=== PATIENT | female | born 1965 | race Caucasian/White ===

== ENCOUNTER → 2022-03-22 10:02 | Outpatient (CLI) | payer OTHER, SELFPAY ==
--- NOTE | ~2022-03-22 | CT_ITS ---
EXAMINATION: CT IAC/mastoids BI wo con DATE: 03/22/2022 10:28 INDICATION: Mixed conductive and sensorineural hearing loss of left ear. TECHNIQUE: Computed tomography (CT) of the temporal bones was performed without intravenous contrast. Automated exposure control and iterative reconstruction technique were employed. The dose-length pro duct was 201.14 mGy-cm. COMPARISON: None FINDINGS: RIGHT TEMPORAL BONE: The internal auditory canal, cochlea, vestibule, semicircular canals, vestibular aqueduct, facial ner ve course, carotid canal, jugular bulb, ossicles, Prussak space, scutum, tympanic membrane, mastoid a ir cells, and external auditory canal are normal. LEFT TEMPORAL BONE: The internal auditory canal, cochlea, vestibule, semicircular canals, vestibular aqueduct, carotid ca nal, jugular bulb, facial nerve course, ossicles, Prussak space, scutum, tympanic membrane, mastoid a ir cells, and external auditory canal are normal. IMPRESSION: 1. Normal temporal bones. Reviewed, dictated and finalized at location A. O EDITOR IMPRESSION: 1. Normal temporal bones.
== END ==
PROVIDERS: Visit Provider Otolaryngology
DX: H90.12 Conductive hearing loss, unilateral, left ear, with unrestricted hearing on the contralateral side (principal); H90.42 Sensorineural hearing loss, unilateral, left ear, with unrestricted hearing on the contralateral side
CPT/HCPCS: 70480

== ENCOUNTER → 2022-06-02 10:21 | Outpatient (CLI) | payer OTHER, SELFPAY ==
--- NOTE | ~2022-06-02 | MM_ITS ---
EXAMINATION: MM screening pippa BI w adriel HISTORY: Screening mammogram TECHNIQUE: Craniocaudal and mediolateral oblique 3-D tomosynthesis images were obtained and synthetic 2-D images were generated. CAD analysis was submitted and interpreted. COMPARISON: No prior mammogram is available for comparison at this institution. BREAST PARENCHYMAL COMPOSITION: There are scattered areas of fibroglandular density. FINDINGS: There is no evidence of suspicious mass, calcification, or architectural distortion to sugg est malignancy in either breast. There has been no suspicious interval change. IMPRESSION: 1. No mammographic evidence of malignancy. 2. Recommend routine screening mammography in one year. BI-RADS Category 1: Negative Reviewed, dictated and finalized at location A. UCT MARKETING COORDINATOR
== END ==
DX: Z12.31 Encounter for screening mammogram for malignant neoplasm of breast (principal)
CPT/HCPCS: 77063; 77067

== ENCOUNTER → 2022-08-04 09:06 | Outpatient (CLI) | payer OTHER, SELFPAY ==
--- NOTE | ~2022-08-04 | MR_ITS ---
EXAMINATION: MR foot RT wo con DATE: 08/04/2022 09:58 INDICATION: Plantar fasciitis TECHNIQUE: Magnetic resonance imaging (MRI) of the right mid and hindfoot was performed without intra venous contrast. Sequences included sagittal, coronal, and axial proton-density weighted fast spin ec ho without and with fat saturation. COMPARISON: None. FINDINGS: Medial ankle ligaments: Deep and superficial deltoid ligaments as well as the spring ligament are normal. Lateral ankle ligaments: The anterior and posterior inferior tibiofibular ligaments are normal. The anterior talofibular, calc aneofibular and posterior talofibular ligaments are normal. Tendons: Achilles tendon is normal. Mild increased fluid signal extending along the peroneal tendon sheath con sistent with mild tenosynovitis. There is mild tendinopathy without definitive tear along the peroneu s longus and brevis tendons. The tibialis anterior and extensor hallucis longus and extensor digitoru m longus tendons are normal. The tibialis posterior, flexor digitorum longus and flexor hallucis long us tendons are normal. Plantar fascia: There is thickening and mild increased signal of the central component of the plantar aponeurosis wit h mild surrounding soft tissue edema. Moderate-sized plantar calcaneal spur and minimal marrow edema at the calcaneal origin of the plantar aponeurosis. Findings are consistent with acute on chronic melissa ntar fasciitis without associated tear. Bones/other: Bone alignment is normal. Mild marrow edema at the anterior process of the calcaneus likely related t o mild osteoarthritis at the at the calcaneocuboid or anterior facet of the subtalar joints. Addition al mild osteoarthritis at a few of the tarsal metatarsal joints. Marrow signal is otherwise unremarka ble. No fracture or pathologic marrow replacing process. Fluid: Subtle asymmetric joint space physiologic amount of fluid in the joint spaces. IMPRESSION: 1. Acute on chronic plantar fasciitis without tear. 2. Mild peroneal tenosynovitis and mild tendinopathy without tear of the peroneus longus and brevis t endons. Reviewed, dictated and finalized at location A. IMPRESSION: 1. Acute on chronic plantar fasciitis without tear. 2. Mild peroneal tenosynovitis and mild tendinopathy without tear of the perone us longus and brevis tendons.
== END ==
PROVIDERS: PCP Family Medicine; Visit Provider Podiatrist Foot & Ankle Surgery
DX: M72.2 Plantar fascial fibromatosis (principal)
CPT/HCPCS: 73718

== ENCOUNTER 2022-10-07 14:09 | Emergency (ER) | payer OTHER, SELFPAY ==
[2022-10-07 14:07] VITALS: BP 166/99; PULSE 75; RESP 18; TEMP 36.9; O2SAT 98
[2022-10-07 14:33] LABS: Basophils Absolute Auto 0.1 K/mm3 (0.0-0.1); Basophils Percent Auto 0.7 % (0.2-1.2); Eosinophils Absolute Auto 0.1 K/mm3 (0-0.3); Eosinophils Percent Auto 1.4 % (0-4.4); Hematocrit 42.6 % (37.0-47.0); Hemoglobin 14.1 g/dL (12.0-15.0); Immature Granulocyte Absolute 0.02 K/mm3 (0.00-0.031); Immature Granulocyte Percent A 0.3 % (0-0.5); Lymphocytes Absolute Auto 2.57 K/mm3 (0.9-3.2); Lymphocytes Percent Auto 33.5 % (18.3-44.2); Mean Corpuscular HGB Conc 33.1 g/dl (32-36); Mean Corpuscular Volume 87.7 fl (80-100); Mean Platelet Volume 9.9 fl (7.4-10.4); Monocytes Absolute Auto 0.5 K/mm3 (0.1-0.6); Neutrophils Absolute Auto 4.5 K/mm3 (1.3-6.7); Neutrophils Percent Auto 58.1 % (45.5-73.1); Platelet Count Result 260 k/mm3 (150-375); Red Blood Count 4.86 M/mm3 (4.2-5.4); Red Cell Distribution Width 12.6 % (11.5-14.5); White Blood Count 7.7 K/mm3 (4.5-10.0)
[2022-10-07 14:38] LABS: Appearance Urine Clear (Clear); Bacteria Urine None Seen /hpf; Bilirubin Urine Negative (Negative); Blood Urine Negative (Negative); Color Urine Yellow (Yellow); Glucose Urine UA Negative (Negative); Ketones Urine Negative (Negative); Leukocyte Esterase Ur 3+ LEU/UL (Negative); Nitrate Urine Negative (Negative); Non Pathogenic Casts 0-2; Protein Urine Negative (Negative); RBC Urine 0-2 /hpf (0-2); Specific Grav Ur 1.003 (1.001-1.035); Squamous Epithelial Cell Urine None seen /hpf (Few); Urobilinogen Urine 0.2 mg/dL (<2.0)
[2022-10-07 14:42] LABS: Add Urine Microscopic? YES
[2022-10-07 14:48] LABS: Ethanol < 10 mg/dL (<10)
[2022-10-07 14:49] LABS: Alanine Aminotransferase 34 U/L (6-35); Albumin Level 4.5 g/dL (3.5-5.1); Alkaline Phosphatase 52 U/L (38-126); Anion Gap 7 mmol/L (8-16); Aspartate Amino Transferase 28 U/L (14-36); Bilirubin,Total 0.5 mg/dL (0.2-1.3); Blood Urea Nitrogen 12 mg/dL (7-17); Calcium 9.1 mg/dL (8.4-10.2); Carbon Dioxide 26 mmol/L (22-30); Chloride 107 mmol/L (98-107); Estimated CRCL calculation 64 ml/min; Estimated Glomerular Filt Rate > 60; Glucose 110 mg/dL (65-110); Potassium 3.9 mmol/L (3.4-5.0); Sodium 140 mmol/L (137-145)
[2022-10-07 14:51] LABS: Amphetamine Screen Urine Negative (Negative); Barbiturate Screen Urine Negative (Negative); Benzodiazepines Screen Urine Negative (Negative); Cannabinoid Screen Urine Negative (Negative); Cocaine Screen Urine Negative (Negative); Methadone Screen Urine Negative (Negative); Opiate Screen Urine Negative (Negative); Phencyclidine Screen Urine Negative (Negative)
[2022-10-07 15:11] LABS: Acetaminophen < 10 ug/mL (10-30); Salicylate < 1.0 mg/dL (2-20)
[2022-10-07 15:19] LABS: Thyroid Stimulating Hormone 0.951 uIU/mL (0.465-4.680)
--- NOTE | 2022-10-07 15:38 | ED.PSYCH ---
HPI - Psych General Chief Complaint: Psychiatric Symptoms <Maritza Ortega PA-C - Last Filed: 10/07/22 19:33> Stated Complaint: SI with plan <Maritza Ortega PA-C - Last Filed: 10/07/22 19:33> Source: patient, RN notes reviewed and old records reviewed <Maritza Ortega PA-C - Last Filed: 10/07/22 19:33> Mode of arrival: EMS <Maritza Ortega PA-C - Last Filed: 10/07/22 19:33> Limitations: no limitations <PEDRO Oviedo Last Filed: 10/07/22 19:33> History of Present Illness HPI Narrative: Patient is a 57-year-old female who presents to the ED via EMS with report of suicidal ideation. Patient presents to the ED from her outpatient primary care doctor's office. She reports she has been increasingly depressed and feeling suicidal over the last 1 month. She was Rx'd fluoxetine by her PCP 1 month ago, but did not start this until 5 days ago. Patient has had numerous stressors. 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 She states her travels 3 out of the 4 weeks out of a month so most of the responsibilities fall on her. They have been trying to get their son into a long-term care facility but have had several insurance issues with this. Her son is currently hospitalized at [facility] and they report it is not looking hopeful for him to find placement. Patient states the suicidal thoughts have become worse surrounding this. She was driving around today and not really sure where to go. She called her primary and talked about these thoughts. She was evaluated by her primary in office and EMS was then called. Patient has thought about starting her car in her garage to kill herself. She also reported to her PCP thoughts of hanging herself. Patient has never attempted suicide before. Never been psychiatrically hospitalized. Denies any homicidal ideation, AVH. <Maritza Ortega PA-C - Last Filed: 10/07/22 19:33> Related Data Allergies/Adverse Reactions: Allergies Allergy/AdvReac Type Severity Reaction Status Date / Time azithromycin AdvReac Nausea and Verified 10/07/22 15:02 Vomiting <Maritza Ortega PA-C - Last Filed: 10/07/22 19:33> Review of Systems Review of Systems: CONSTITUTIONAL: Denies fever, chills, or sweats. CARDIOVASCULAR: Denies chest pain. RESPIRATORY: Denies dyspnea. GASTROINTESTINAL: Denies abdominal pain, nausea, vomiting. GENITOURINARY: Denies dysuria or hematuria. MUSCULOSKELETAL: Denies pain. NEUROLOGIC: Denies headache, numbness, or weakness. PSYCHIATRIC: See HPI. <Maritza Ortega PA-C - Last Filed: 10/07/22 19:33> All systems reviewed & are unremarkable except as noted in HPI and below <Maritza Ortega PA-C - Last Filed: 10/07/22 19:33> Exam Narrative: GENERAL: Well appearing, well-nourished, non-toxic, in no acute distress. HEAD: Normocephalic, atraumatic. NECK: Supple. No adenopathy, no masses. RESPIRATORY: Airway patent, respirations nonlabored. Clear to auscultation bilaterally, no rales, rhonchi, wheezing. CARDIOVASCULAR: Regular rate and rhythm without murmurs, rubs, or gallops. Radial pulses 2+ and equal bilaterally. ABDOMINAL: Soft, nontender, nondistended, no hepatosplenomegaly. Normoactive BS. MUSCULOSKELETAL: Moves all extremities. Strength/ROM intact without gross deformities. SKIN: Warm, dry, normal color. No rashes. NEURO: A&O X3. Speech clear. Cranial nerves II-XII grossly intact. Steady gait. No ataxic movements. PSYCHIATRIC: Anxious, depressed, tearful. Normal interaction. <Maritza Ortega PA-C - Last Filed: 10/07/22 19:33> Course MARINE RADIO INSTALLER AND SERVICER/PA Physician Supervision I agree with midlevel documentation; I performed the medical decision making component of this evaluation. Patient will be admitted to psychiatric hospital, accepted at [facility]. <Debbie Jimenez MD - Last Filed: 10/07/22 22:25> Vital Signs Vital signs: Vital Si
[2022-10-07 15:41] LABS: SARS-CoV-2 RNA PCR Negative (Negative)
[2022-10-07] MEDS: CEPHALEXIN 500 MG CAPSULE PO (15:54)
--- NOTE | 2022-10-07 17:13 | PC.NURSE ---
crisis evaluated pt. pt will be a voluntary admission.
--- NOTE | 2022-10-07 17:20 | PC.NURSE ---
chart faxed to [facility], [facility], and [facility]
--- NOTE | 2022-10-07 17:33 | PC.NURSE ---
ordered pt safety dinner tray.
--- NOTE | 2022-10-07 20:02 | PC.NURSE ---
spoke to [facility]. famary[facility] chart over now as requested by RN
[2022-10-07 20:17] VITALS: BP 141/84; PULSE 78; RESP 16; TEMP 36.7; O2SAT 98
--- NOTE | 2022-10-07 20:20 | PC.NURSE ---
VS faxed to [facility] as requested by RN.
--- NOTE | 2022-10-07 20:57 | PC.NURSE ---
pt accepted at [facility] to [id number]. [phone] for report.
--- NOTE | 2022-10-07 21:04 | PC.NURSE ---
report called to Audra at [facility]
--- NOTE | 2022-10-07 22:17 | PC.NURSE ---
updated pt Dimitris at [phone]
== END 2022-10-07 22:46 ==
PROVIDERS: Emergency Provider Physician Assistant; PCP Internal Medicine
DX: F32.A Depression, unspecified (principal); R45.851 Suicidal ideations; N30.00 Acute cystitis without hematuria; Z20.822 Contact with and (suspected) exposure to COVID-19; Z79.899 Other long term (current) drug therapy
CPT/HCPCS: 36415; 80053; 80307; 81001; 81025; 84443; 85025; 87086; 87088; 87147; 87635; 99285; A9270